=== PATIENT | male | born 1950 | race Two or more races ===

== ENCOUNTER 2020-06-29 05:39 | Day surgery (SDC) | payer MEDICARE, MEDICAID ==
[~2020-06-29] VITALS: Ht 172.7 cm; Wt 160.0 kg
[2020-06-29 06:15] VITALS: BP 178/111
[2020-06-29] MEDS ORDERED: TAMS-11 PO (06:33)
[2020-06-29] MEDS ORDERED: RIVA20TA PO (06:33)
[2020-06-29] MEDS ORDERED: ATOR40TA78 PO (06:33)
[2020-06-29] MEDS ORDERED: LISI1TAB39 PO (06:33)
[2020-06-29] MEDS ORDERED: MINO2.5T PO (06:33)
[2020-06-29] MEDS ORDERED: MULT1TAB57 PO (06:33)
[2020-06-29] MEDS ORDERED: AMIO200T42 PO ×2 (06:33→08:40)
[2020-06-29] MEDS ORDERED: METO25TA91 PO ×2 (06:33→08:41)
[2020-06-29] MEDS ORDERED: HYDR-3237 PO (06:33)
[2020-06-29] MEDS ORDERED: ASCO500C2 PO (06:33)
[2020-06-29 06:42] LABS: ANION GAP 7 mmol/L (5-15); CHLORIDE 110 mmol/L (98-107); CREATININE 1.17 mg/dL (0.7-1.3)
[2020-06-29] MEDS ORDERED: PROPOFOL 10 MG/ML, 20ML ONE (07:49)
[2020-06-29] MEDS ORDERED: HYDR-3343 PO (08:26)
== END 2020-06-29 09:25 | disposition home or self-care (01) ==
LOC: CACL 05:39
PROVIDERS: ATTEND Internal Medicine Clinical Cardiac Electrophysiology
DX: I48.19 Other persistent atrial fibrillation (principal); I42.9 Cardiomyopathy, unspecified; I11.0 Hypertensive heart disease with heart failure; I50.9 Heart failure, unspecified; Z79.01 Long term (current) use of anticoagulants; Z79.899 Other long term (current) drug therapy; Z79.82 Long term (current) use of aspirin; Z87.891 Personal history of nicotine dependence; Z98.890 Other specified postprocedural states
CPT/HCPCS: 36415; 80048; 92960; J2704

== ENCOUNTER 2020-09-14 10:34 | Outpatient (CLI) | payer MEDICARE, MEDICAID ==
[~2020-09-14 10:34] MED LIST: AMIO200T42 PO; ASCO500C2 PO; ATOR40TA78 PO; HYDR-3237 PO; HYDR-3343 PO; LISI1TAB39 PO; METO25TA91 PO; MINO2.5T PO; MULT1TAB58 PO; RIVA20TA PO; TAMS-11 PO
[2020-09-14] MEDS ORDERED: OMNIPAQUE 350 MG/ML, 150 ML BOTTLE ONE (14:45)
== END 2020-09-14 23:59 | disposition home or self-care (01) ==
LOC: CFH 10:34
PROVIDERS: ATTEND Internal Medicine Clinical Cardiac Electrophysiology
DX: Z13.6 Encounter for screening for cardiovascular disorders (principal); I48.19 Other persistent atrial fibrillation; I42.9 Cardiomyopathy, unspecified; I51.7 Cardiomegaly; I28.8 Other diseases of pulmonary vessels
CPT/HCPCS: 71046; 75572; Q9967

== ENCOUNTER 2020-09-14 10:36 | Outpatient (CLI) | payer MEDICARE, MEDICAID | END 2020-09-14 23:59 | disposition home or self-care (01) | LOC: STAR 10:36 | PROVIDERS: ATTEND Internal Medicine Clinical Cardiac Electrophysiology | DX: Z20.822 Contact with and (suspected) exposure to COVID-19 (principal) | CPT/HCPCS: U0003 ==

== ENCOUNTER 2020-09-18 10:44 | Observation (INO) | payer MEDICARE, MEDICAID ==
[~2020-09-18] VITALS: Ht 175.3 cm; Wt 153.2 kg
[2020-09-18 12:30] VITALS: BP 151/104
[2020-09-18] MEDS ORDERED: SODIUM CHLORIDE 0.9% 1,000 ML IV SCH ×2 (12:30→13:00)
[2020-09-18] MEDS ORDERED: METO-95 PO (12:49)
[2020-09-18] MEDS ORDERED: ISOS60TA36 PO (12:49)
[2020-09-18] MEDS ORDERED: HYDR-3343 PO (12:49)
[2020-09-18] MEDS ORDERED: CYCL10TA2 PO (12:51)
[2020-09-18] MEDS ORDERED: PROPOFOL 50 ML ONE (13:12)
[2020-09-18] MEDS ORDERED: MIDAZOLAM 1 MG/ML, 2ML ONE (13:12)
[2020-09-18] MEDS ORDERED: ONDANSETRON 2MG/ML, 2ML ONE ×2 (13:13→13:34)
[2020-09-18] MEDS ORDERED: SUCCINYLCHOLINE 20 MG/ML, 10ML ONE (13:13)
[2020-09-18] MEDS ORDERED: ROCURONIUM 10MG/ML,5ML ONE (13:13)
[2020-09-18] MEDS ORDERED: FENTANYL PF 250 MCG/5ML ONE (13:13)
[2020-09-18] MEDS ORDERED: DEXAMETHASONE 4 MG/ML, 1ML ONE ×2 (13:13→13:34)
[2020-09-18] MEDS ORDERED: LIDOCAINE 2%, 20ML ONE (13:30)
[2020-09-18] MEDS ORDERED: HEPARIN 1,000 UNITS/ML, 10ML ONE ×3 (13:51→14:49)
[2020-09-18] MEDS ORDERED: morphine SULFATE 10 MG/ML, 1ML IVPush PRN (15:30)
[2020-09-18] MEDS ORDERED: EPHEDRINE 50 MG/ML, 1ML IVPush PRN (15:30)
[2020-09-18] MEDS ORDERED: FENTANYL PF 100 MCG/2ML IV PRN (15:30)
[2020-09-18] MEDS ORDERED: DIPHENHYDRAMINE 50 MG/ML, 1ML IVPush PRN (15:30)
[2020-09-18] MEDS ORDERED: ACETAMINOPHEN 325 MG TABLET PO PRN (15:30)
[2020-09-18] MEDS ORDERED: MEPERIDINE/PF 25MG/0.5ML IVPush PRN (15:30)
[2020-09-18] MEDS ORDERED: ONDANSETRON 2MG/ML, 2ML IVPush PRN (15:30)
[2020-09-18] MEDS ORDERED: OXYcodone 5 MG/5 ML ORAL.SOL UDC PO PRN (15:30)
[2020-09-18] MEDS ORDERED: DIAZEPAM 5 MG/ML, 2ML IVPush PRN (15:30)
[2020-09-18] MEDS ORDERED: LABETALOL 5MG/ML, 20ML IV PRN (15:30)
[2020-09-18] MEDS ORDERED: PROMETHAZINE 25 MG/ML, 1ML IVPush PRN (15:30)
[2020-09-18] MEDS ORDERED: EPHEDRINE 50 MG/ML, 1ML IM PRN (15:30)
[2020-09-18] MEDS ORDERED: HYDROcodone/APAP 5/325 TABLET PO PRN (17:30)
[2020-09-18] MEDS ORDERED: PANTOPRAZOLE 20MG TABLET PO ONE (17:30)
[2020-09-18] MEDS ORDERED: RIVAROXABAN 20 MG TABLET PO SCH (18:00)
[2020-09-18] MEDS: COLCHICINE 0.6 MG CAPSULE PO SCH (20:10)
[2020-09-18] MEDS: LISINOPRIL 20 MG TABLET PO SCH (20:10)
[2020-09-18] MEDS: HYDROCHLOROTHIAZIDE 12.5 MG CAPSULE PO SCH (20:10)
[2020-09-18 20:15] VITALS: BP 134/90
[2020-09-18] MEDS: TAMSULOSIN 0.4 MG CAP.ER.24H PO SCH (20:16)
[2020-09-18] MEDS ORDERED: CYCLOBENZAPRINE 10 MG TABLET PO SCH (21:00)
[2020-09-18] MEDS: METOPROLOL SUCCINATE 100 MG TAB.ER.24H PO SCH (21:00)
[2020-09-18 23:45] VITALS: BP 123/82
[2020-09-19 07:52] VITALS: BP 127/84
[2020-09-19] MEDS ORDERED: RIVAROXABAN 20 MG TABLET PO SCH (08:00)
[2020-09-19] MEDS ORDERED: ISOSORBIDE MONONITRATE ER 60 MG TABLET PO SCH (09:00)
[2020-09-19] MEDS ORDERED: AMIODARONE 200 MG TABLET PO SCH (09:00)
[2020-09-19] MEDS: METOPROLOL SUCCINATE 100 MG TAB.ER.24H PO SCH (09:30)
[2020-09-19] MEDS: HYDROCHLOROTHIAZIDE 12.5 MG CAPSULE PO SCH (09:30)
[2020-09-19] MEDS: COLCHICINE 0.6 MG CAPSULE PO SCH (09:30)
[2020-09-19] MEDS: LISINOPRIL 20 MG TABLET PO SCH (09:30)
[2020-09-19] MEDS: TAMSULOSIN 0.4 MG CAP.ER.24H PO SCH (09:30)
[2020-09-19] MEDS ORDERED: COLC0.6C3 PO (10:36)
[2020-09-19] MEDS ORDERED: AMIO200T42 PO (10:36)
[2020-09-19] MEDS ORDERED: PANT20TA2 PO (10:36)
== END 2020-09-19 12:55 | disposition home or self-care (01) ==
LOC: CACL 10:44 → 5SO 18:19 → CACL 23:25 → INTOOBSV 23:25 → 5SO 23:25 → DCLOUNGE 09-19 12:45
PROVIDERS: ADMIT Internal Medicine Clinical Cardiac Electrophysiology; ATTEND Internal Medicine Clinical Cardiac Electrophysiology
DX: I48.11 Longstanding persistent atrial fibrillation (principal); I42.9 Cardiomyopathy, unspecified; I10 Essential (primary) hypertension; Z86.16 Personal history of COVID-19; Z79.899 Other long term (current) drug therapy
CPT/HCPCS: 76937; 85347; 93005; 93312; 93321; 93325; 93613; 93655; 93656; 93657; 93662; C1730; C1732; C1759; C1766; C1893; C1894; C8929; G0378; J0330; J1100; J1644; J2250; J2405; J2704; J3010; J3490

== ENCOUNTER 2020-09-21 18:20 | Emergency (ER) | payer MEDICARE, MEDICAID ==
[~2020-09-21] VITALS: Ht 170.2 cm; Wt 146.4 kg
[~2020-09-21 18:20] MED LIST changes: +COLC0.6C3 PO; +CYCL10TA2 PO; +ISOS60TA36 PO; +METO-95 PO; +PANT20TA2 PO
--- NOTE | 2020-09-21 19:01 | NUR ---
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 PT STATES HE WENT TO THE RESTROOM AT 1500 AND DIDN'T SEE ANY BRUISING AND WENT IN AGAIN AT 1700 AND NOTICED THE BRUISING. 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 PT RESTING ON GURNEY. NADN. MONITORS APPLIED. VSS. WARM BLANKET PROVIDED. ERP DR. PATTEN AT BEDSIDE FOR EVAL.
[2020-09-21 19:27] LABS: BASOPHILS % (AUTO) 1 % (0-1); EOSINOPHILS % (AUTO) 2 % (1-7); LYMPHOCYTES % (AUTO) 20 % (22-44); MEAN CORPUSCULAR HGB CONC 33.6 g/dL (33.2-36.2); MEAN PLATELET VOLUME 7.8 fL (7.4-10.4); MONOCYTES % (AUTO) 12 % (2-9); NEUTROPHILS % (AUTO) 66 % (42-75); PLATELET COUNT 172 x10^3/uL (130-400); RED BLOOD COUNT 3.96 x10^6/uL (4.38-5.82); RED CELL DISTRIBUTION WIDTH 15.1 % (9.4-14.8)
[2020-09-21 19:33] LABS: ALBUMIN 3.3 g/dL (3.4-5.0); ANION GAP 5 mmol/L (5-15); CALCIUM 8.6 mg/dL (8.5-10.1); CHLORIDE 107 mmol/L (98-107)
[2020-09-21 19:34] LABS: MD NO
[2020-09-21 19:57] VITALS: BP 168/96
--- NOTE | 2020-09-21 19:57 | NUR ---
PT CHART REVIEWED AND PLACED FOR RECHECK.
--- NOTE | 2020-09-21 19:58 | NUR ---
PT RESTING ON GURNEY. NADN. ODEN.
== END 2020-09-21 20:15 | disposition home or self-care (01) ==
LOC: ED 20:00
DX: S30.1XXA Contusion of abdominal wall, initial encounter (principal); X58.XXXA Exposure to other specified factors, initial encounter; Y93.89 Activity, other specified; Y92.89 Other specified places as the place of occurrence of the external cause; Y99.8 Other external cause status
CPT/HCPCS: 36415; 80048; 82040; 85025; 99284